=== PATIENT | female | born 1955 | race Two or more races ===

== ENCOUNTER 2019-09-15 12:56 | Emergency (ER) | payer MEDICAID ==
[~2019-09-15] VITALS: Ht 147.3 cm; Wt 59.0 kg
[2019-09-15 15:52] LABS: BASOPHILS % 0.6 % (0.0-2.0); CHLORIDE 106 mEq/L (98-107); EOSINOPHILS % 1.3 % (0.0-5.0); HEMATOCRIT. 45.3 % (36.0-48.0); HEMOGLOBIN. 15.5 g/dL (12.0-16.0); LYMPHOCYTES % 38.4 % (20.0-50.0); MEAN CORPUSCULAR HEMOGLOBIN 31.2 pg (28.0-32.0); MEAN CORPUSCULAR VOLUME 91.2 fL (81.0-99.0); MEAN PLATELET VOLUME 7.8 fl (7.4-10.4); MONOCYTES % 7.9 % (2.0-8.0); NEUTROPHILS % 51.8 % (40.0-76.0); PLATELET 273 x1000/uL (130-400); RED BLOOD CELL COUNT 4.97 mill/uL (4.2-5.4); RED CELL DISTRIBUTION WIDTH 13.8 % (11.6-14.6)
[2019-09-15 16:01] LABS: ETHANOL BLOOD < 10 mg/dL
[2019-09-15] MEDS ORDERED: LORAZEPAM 2MG/ML CPJ IM ONE (19:15)
[2019-09-15] MEDS ORDERED: LORAZEPAM 1MG TABLET PO ONE (19:15)
[2019-09-16 17:10] LABS: CLARITY URINE CLEAR (CLEAR); COLOR URINE YELLOW (YELLOW); KETONES URINE NEGATIVE (NEGATIVE); LEUKOCYTE ESTERASE URINE 2+ (NEGATIVE); NITRITE URINE NEGATIVE (NEGATIVE); OCCULT BLOOD URINE NEGATIVE (NEGATIVE); PH URINE 7.5 (4.5-8.0); PROTEIN URINE NEGATIVE (NEGATIVE); SPECIFIC GRAVITY URINE 1.017 (1.005-1.030)
[2019-09-16 17:20] LABS: *AMPHETAMINES SCREEN URINE NEGATIVE (NEGATIVE); *BARBITURATES SCREEN URINE NEGATIVE (NEGATIVE); *BENZODIAZEPINES SCREEN URINE NEGATIVE (NEGATIVE); *COCAINE SCREEN URINE NEGATIVE (NEGATIVE); METHADONE URINE SCREEN NEGATIVE (NEGATIVE); OPIATES URINE SCREEN NEGATIVE (NEGATIVE)
[2019-09-16 17:21] LABS: CANNABINOID URINE SCREEN NEGATIVE (NEGATIVE); PHENCYCLIDINE URINE SCREEN NEGATIVE (NEGATIVE)
[2019-09-16] MEDS ORDERED: LORAZEPAM 1MG TABLET PO ONE (18:30)
[2019-09-16] MEDS: GABAPENTIN 300MG CAPSULE PO SCH (21:53)
[2019-09-17] MEDS: GABAPENTIN 300MG CAPSULE PO SCH ×3 (06:22→23:04)
[2019-09-18] MEDS: GABAPENTIN 300MG CAPSULE PO SCH (07:38)
[2019-09-18 13:33] VITALS: BP 134/64
== END 2019-09-18 13:59 ==
LOC: ER 12:56
DX: R45.851 Suicidal ideations (principal); M25.571 Pain in right ankle and joints of right foot; M25.572 Pain in left ankle and joints of left foot; Z88.8 Allergy status to other drugs, medicaments and biological substances
CPT/HCPCS: 36415; 80053; 80305; 80320; 85025; 96372; 99285; J2060; G0480

== ENCOUNTER 2019-09-18 15:00 | Emergency (ER) | payer MEDICAID ==
[~2019-09-18] VITALS: Ht 160 cm; Wt 63.0 kg
[2019-09-18 19:08] LABS: BASOPHILS % 0.6 % (0.0-2.0); HEMATOCRIT. 43.2 % (36.0-48.0); HEMOGLOBIN. 14.8 g/dL (12.0-16.0); LYMPHOCYTES % 35.1 % (20.0-50.0); MEAN CORPUSCULAR HEMOGLOBIN 31.2 pg (28.0-32.0); MEAN CORPUSCULAR VOLUME 90.8 fL (81.0-99.0); MEAN PLATELET VOLUME 7.3 fl (7.4-10.4); NEUTROPHILS % 57.3 % (40.0-76.0); PLATELET 284 x1000/uL (130-400); RED BLOOD CELL COUNT 4.76 mill/uL (4.2-5.4); RED CELL DISTRIBUTION WIDTH 13.7 % (11.6-14.6)
[2019-09-18 19:15] LABS: CHLORIDE 104 mEq/L (98-107)
[2019-09-18] MEDS: GABAPENTIN 400MG CAPSULE PO SCH (22:14)
[2019-09-19] MEDS ORDERED: LORAZEPAM 2MG/ML CPJ IM ONE (04:10)
[2019-09-19] MEDS ORDERED: LORAZEPAM 2MG/ML CPJ ONE (04:20)
[2019-09-19] MEDS: GABAPENTIN 400MG CAPSULE PO SCH ×3 (06:58→22:30)
[2019-09-20] MEDS ORDERED: DIPHENHYDRAMINE 25MG CAPSULE PO ONE (15:30)
[2019-09-20] MEDS: GABAPENTIN 400MG CAPSULE PO SCH (16:10)
[2019-09-20] MEDS ORDERED: LORAZEPAM 1MG TABLET PO ONE (18:45)
[2019-09-20] MEDS ORDERED: DIPHENHYDRAMINE 50MG CAPSULE PO ONE (20:15)
[2019-09-20] MEDS: GABAPENTIN 300MG CAPSULE PO SCH (22:02)
[2019-09-21] MEDS: GABAPENTIN 300MG CAPSULE PO SCH ×3 (05:55→21:56)
[2019-09-21] MEDS ORDERED: DIPHENHYDRAMINE 50MG CAPSULE PO ONE (11:00)
[2019-09-21] MEDS ORDERED: LORAZEPAM 1MG TABLET PO ONE ×2 (17:30→17:38)
[2019-09-21] MEDS ORDERED: LORAZEPAM 1MG TABLET PO NR (17:48)
[2019-09-22] MEDS: GABAPENTIN 300MG CAPSULE PO SCH ×2 (06:59→14:00)
[2019-09-22] MEDS ORDERED: DIPHENHYDRAMINE 25MG CAPSULE PO ONE (10:00)
[2019-09-22] MEDS ORDERED: LORAZEPAM 1MG TABLET PO ONE (12:00)
[2019-09-23] MEDS: GABAPENTIN 300MG CAPSULE PO SCH ×3 (01:11→17:17)
[2019-09-24] MEDS: GABAPENTIN 300MG CAPSULE PO SCH ×3 (02:54→14:00)
[2019-09-24] MEDS ORDERED: RISPERIDONE 1MG TABLET PO STA (07:24)
[2019-09-24 20:34] VITALS: BP 111/68
[2019-09-24] MEDS ORDERED: RISPERIDONE 1MG TABLET PO SCH (21:00)
== END 2019-09-24 20:32 ==
LOC: ER 15:00
DX: Z03.818 Encounter for observation for suspected exposure to other biological agents ruled out (principal); F99 Mental disorder, not otherwise specified; R45.851 Suicidal ideations; F72 Severe intellectual disabilities; F31.9 Bipolar disorder, unspecified; J44.9 Chronic obstructive pulmonary disease, unspecified; F25.9 Schizoaffective disorder, unspecified; M79.7 Fibromyalgia; Z59.0 Homelessness; Z88.8 Allergy status to other drugs, medicaments and biological substances
CPT/HCPCS: 99285; C9803; 36415; 80048; 85025